=== PATIENT | female | born 1945 | race Caucasian/White ===

== ENCOUNTER → 2019-03-23 | Outpatient (CLI) | payer MEDICARE ==
[~2019-03-23] MED LIST: ATOR40TA59 PO; LOSA-73 PO; MELA3TAB2 PO; MELO15TA23 PO; MULT1TAB52 PO; TRAM50TA PO
--- NOTE | 2019-03-23 13:02 | KCIC ---
EXAM: ABDOMINAL ULTRASOUND. HISTORY: Hepatic cirrhosis. COMPARISON: None. FINDINGS: Sonographic evaluation of the abdomen was performed. Hyperechogenicity of the hepatic parenchyma is consistent with diffuse hepatic steatosis. This lowers sensitivity for focal lesions. None are seen. There is no gross hepatic surface nodularity. The gallbladder is surgically absent. There is no sonographic Bryant sign. The common duct measures 3 mm. The visualized portions of the head and body of the pancreas reveal no abnormality. The right kidney measures 11.1 cm. Cortical thickness and echogenicity are preserved. There is no hydronephrosis. The visualized portions of the abdominal aorta and inferior vena cava are grossly patent and normal in caliber. IMPRESSION: 1. Diffuse hepatic steatosis. No gross morphologic changes of cirrhosis or suspicious hepatic lesions by ultrasound. Electronically signed by: Rad Chun MD (03/23/2019 12:59 PM) [facility] [place]
== END | disposition home or self-care (01) ==
LOC: KCIC US 08:37 → EDUNIT# 09:00
PROVIDERS: ATTEND Nurse Practitioner
DX: K74.60 Unspecified cirrhosis of liver (principal); K76.0 Fatty (change of) liver, not elsewhere classified; Z90.49 Acquired absence of other specified parts of digestive tract
CPT/HCPCS: 76705